=== PATIENT | male | born 1970 | race African-American/Black ===

== ENCOUNTER 2018-05-25 13:20 | Emergency (ER) | payer SELFPAY ==
[2018-05-25] MEDS ORDERED: KETOROLAC 30 MG/ML INJ ONE (14:00)
--- NOTE | 2018-05-25 14:49 | RAD REPORT ---
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 Mild AC joint arthritic changes present. No acute fracture seen.
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
== END 2018-05-25 15:23 | disposition home or self-care (01) ==
LOC: ER 13:20
DX: M25.512 Pain in left shoulder (principal)
CPT/HCPCS: 96372; 99284